=== PATIENT | male | born 1955 | race Caucasian/White ===

== ENCOUNTER 2016-09-02 18:19 | Emergency (ER) | payer OTHER ==
[~2016-09-02] VITALS: Ht 170.2 cm; Wt 83.7 kg
[2016-09-02 19:29] VITALS: BP 136/88
== END 2016-09-02 19:29 | disposition home or self-care (01) ==
LOC: ED 18:19
DX: H11.31 Conjunctival hemorrhage, right eye (principal)

== ENCOUNTER 2017-08-28 12:33 | Emergency (ER) | payer OTHER ==
[~2017-08-28] VITALS: Ht 170.2 cm; Wt 79.4 kg
[2017-08-28 12:37] VITALS: Ht 170.2 cm; Wt 79.4 kg
[2017-08-28 15:56] VITALS: BP 114/73
[2017-08-28 16:03] LABS: UA SPECIFIC GRAVITY 1.025 (1.005-1.035); microscopic required? YES; urine erythrocyte 2+ (NEGATIVE)
== END 2017-08-28 17:03 | disposition home or self-care (01) ==
LOC: ED 12:33
PROVIDERS: Emergency Medicine
DX: M54.41 Lumbago with sciatica, right side (principal); I10 Essential (primary) hypertension; E78.00 Pure hypercholesterolemia, unspecified
CPT/HCPCS: J2270; Q0162

== ENCOUNTER 2020-08-18 11:39 | Emergency (ER) | payer OTHER ==
[~2020-08-18] VITALS: Ht 170.2 cm; Wt 77.1 kg
[2020-08-18 11:50] VITALS: BP 112/71; Ht 170.2 cm; Wt 77.1 kg
== END 2020-08-18 14:05 | disposition home or self-care (01) ==
LOC: ED 11:39
DX: R60.1 Generalized edema (principal); I10 Essential (primary) hypertension; E78.00 Pure hypercholesterolemia, unspecified